=== PATIENT | male | born 1965 | race African-American/Black ===

== ENCOUNTER 2020-09-20 17:05 | Emergency (ER) | payer MEDICARE, MEDICAID ==
[2020-09-20] MEDS ORDERED: Lidocaine 1% w/Epinephrine 1:100K 20 ML VIAL ONE (18:06)
[2020-09-20] MEDS ORDERED: Boostrix 0.5 ML (Tdap) VIAL ONE (18:06)
== END 2020-09-20 18:32 | disposition home or self-care (01) ==
LOC: CSHERS 17:05
DX: H00.034 Abscess of left upper eyelid (principal); J44.9 Chronic obstructive pulmonary disease, unspecified; I10 Essential (primary) hypertension; F17.210 Nicotine dependence, cigarettes, uncomplicated; Z79.899 Other long term (current) drug therapy
CPT/HCPCS: 10060; 90471; 90715

== ENCOUNTER 2021-10-13 08:16 | Emergency (ER) | payer OTHER, MEDICARE, MEDICAID | END 2021-10-13 10:25 | disposition home or self-care (01) | LOC: CSHERS 08:16 | DX: S00.83XA Contusion of other part of head, initial encounter (principal); I10 Essential (primary) hypertension; J44.9 Chronic obstructive pulmonary disease, unspecified; F17.210 Nicotine dependence, cigarettes, uncomplicated; W01.198A Fall on same level from slipping, tripping and stumbling with subsequent striking against other object, initial encounter; Z79.899 Other long term (current) drug therapy | CPT/HCPCS: 70486; 71045; 76377 ==

== ENCOUNTER 2022-03-11 11:54 | Emergency (ER) | payer MEDICARE, MEDICAID ==
[2022-03-11 12:45] LABS: #Basophils 0.1 10x3/uL (0.0-0.2); #Eosinphils 1.3 10x3/uL (0.0-0.5); #Monocytes 0.9 10x3/uL (0.0-1.1); #Neutrophils 3.2 10x3/uL (1.5-8.4); %Basophils 0.6 % (0.0-2.0); %Eosinophils 16.4 % (0.0-6.0); %Lymphocytes 30.5 % (18.0-47.0); %Monocytes 11.2 % (0.0-10.0); Hemoglobin 16.6 g/dL (13.5-17.5); Mean Corpuscular HGB CONC 32.2 g/dL (32.0-36.0); Mean Corpuscular Hemoglobin 28.9 pg (27.0-33.0); Mean Corpuscular Volume 89.7 fl (81.2-95.1); Mean Platelet Volume 8.9 fl (7.4-10.4); Platelet Count 296 10x3/uL (150-450); RBC Distribution Width 12.7 % (11.5-14.5); Red Blood Cell (RBC) Count 5.74 10x6/uL (4.32-5.72); White Blood Cell (WBC) Count 7.9 10x3/uL (3.5-10.5)
[2022-03-11] MEDS ORDERED: methylPREDNISolone Sod Succ/PF 125 MG/2 ML VIAL ONE (12:58)
== END 2022-03-11 15:50 | disposition home or self-care (01) ==
LOC: CSHERS 11:54
DX: K11.5 Sialolithiasis (principal); J44.9 Chronic obstructive pulmonary disease, unspecified; I10 Essential (primary) hypertension; F17.210 Nicotine dependence, cigarettes, uncomplicated
CPT/HCPCS: 36415; 70492; 71045; 83880; 84484; 85025; 93005; 94640; 94760; 96374; J2930; J7620